=== PATIENT | female | born 1965 | race Caucasian/White ===

== ENCOUNTER 2016-08-06 19:46 | Emergency (ER) | payer OTHER ==
[~2016-08-06] VITALS: Ht 162.6 cm; Wt 72.7 kg
[2016-08-06 19:53] VITALS: BP 119/74; PULSE 70; RESP 16; O2SAT 96
--- NOTE | 2016-08-06 20:19 | ED.REPORT ---
HPI-Hand Prob/Inj Date of Service Aug 06, 2016 ED Provider: History of Present Illness: 51yo female with L thumb lac sustained just prior to arrival on sharp can lid. Uncertain last Td. Pt. refuses sutures. R hand dominant. No other injuries. Nursing Notes Stated Complaint: LEFT THUMB LACERATION Chief Complaint: Laceration Nursing Notes Reviewed: Yes Allergies: Coded Allergies: No Known Allergies (Unverified , 08/06/16) No Active Prescriptions or Reported Meds General Time Seen by Provider: 20:20 Chief Complaint Finger injury left Hx Obtained From: Patient Arrived By: Walk-in Onset Occurred: Just prior to arrival Context of Onset: Home injury Symptom Duration: Since onset Progression Since Onset: Unchanged Location: Left Hand: : Finger... (Thumb): Volar surface Radiation: Does not radiate Severity: Current: Mild Severity: Maximum: Mild Immunizations: Tetanus not up to date Recent Healthcare: No recent doctor visit Similar Sx Previous: No Past Medical History Past Medical History denies Past Surgical History denies Smoking History Unknown if Ever Smoker Ambulatory Status Independent Review of Systems Review of Systems Note: L thumb 1.0cm lac Constitutional: Denies: Chills, Fever Musculoskeletal: Denies: Joint pain Respiratory: Denies: Shortness of breath Cardiovascular: Denies: Chest pain GI: Denies: Abdominal pain Physical Exam Initial Vital Signs Vital Signs (First) Date Time Temp Pulse Resp B/P Pulse Ox O2 Delivery O2 Flow Rate FiO2 08/06/16 19:53 36.3 70 16 119/74 96 Room Air Initial VS: Vital signs normal General/Constitutional: Well-developed Respiratory: Breath sounds normal Cardiovascular: Regular rate & rhythm Abdomen / GI: Soft Wrist / Hand: Full range of motion, Vascular intact, No ligamentous injury, Tendon function NL Left Thumb: Negative: Deformity present..., Neuro deficit present, Tendon injury extensor, Tendon injury flexor Trauma / Burn / Environmental: Positive: Laceration 1.0cm lac L thumb. Due to Pt's preference, sutures not used. Applied dermabond instead Procedures Laceration Management Time: 20:40 Consent / Setup / Site Prep: Consent from patient Wound Length: 1 cm Digital Block: No Digit Involved: Thumb left Wound Preparation: Hibiclens - Chlorhexidine Debridement: None Irrigation: 50 cc Repair Skin: Dermabond Post-Procedure / Complications: Dressing applied, No complications, Condition improved, Tolerated procedure well Re-Eval/Medical Decision Med Decision/Clinical Course Straightforward L thumb lac, no worrisome features. Would have typically closed with sutures, but Pt. refused. Applied dermabondf instead. Td updated today. Counseled Regarding: Diagnosis, Need for follow-up, When/why to return to ED Discharge & Departure Primary Impression: Laceration of thumb Encounter type: initial encounter Laterality: left Qualified Code: S61.012A - Laceration without foreign body of left thumb without damage to nail , initial encounter Disposition: Home Patient Instructions: Acute Wound Care (GEN) Additional Instructions: Keep clean and dry, avoid picking at skin glue adhesive. Leave bandage intact until tomorrow evening. Soap and water once daily. Try to keep open at night. Glue should flake off in 7-10 days. Return to ER if any problems. Referrals: Lis Souza (PCP) Other as needed EDSupervising Provider for APC: Elian Mireles MD, Christopher R PAC Aug 06, 2016 20:19
[2016-08-06] MEDS ORDERED: TdaP Vaccine 0.5 mL Inj IM ONE (20:20)
[2016-08-06] MEDS ORDERED: Tissue Adhesive Liq (CS Supplied) TOPICAL ONE (20:20)
== END 2016-08-06 20:56 | disposition home or self-care (01) ==
LOC: SED 19:46
DX: S61.012A Laceration without foreign body of left thumb without damage to nail, initial encounter (principal); W26.8XXA Contact with other sharp object(s), not elsewhere classified, initial encounter; Y93.9 Activity, unspecified; Y92.009 Unspecified place in unspecified non-institutional (private) residence as the place of occurrence of the external cause; Y99.8 Other external cause status; Z23 Encounter for immunization